=== PATIENT | female | born 2005 | race African-American/Black ===

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

== ENCOUNTER 2024-01-30 12:28 | Inpatient (IN) | payer OTHER ==
[~2024-01-30] VITALS: Ht 154.9 cm; Wt 51.4 kg
[~2024-01-30 12:28] MED LIST changes: +LOPERAMIDE HCL2 MG PO; +OMEPRAZOLE MAGN20 MG PO; +ONDANSETRON HYDR4 M1 PO; +ZAFEMY 150-351 EACH TD
[2024-01-30 12:36] VITALS: BP 131/61
[2024-01-30] MEDS ORDERED: Ondansetron Hydrochloride 4 MG/2 ML VIAL IV ONE (13:00)
[2024-01-30] MEDS ORDERED: SODIUM CHLORIDE 0.9% 1,000 ML IV ONE ×2 (13:00→14:05)
[2024-01-30 13:19] LABS: EOS % 0.1 % (1.0-4.0)
[2024-01-30 13:23] LABS: BASO % 0.3 % (0.0-1.0); LYMPH # 3.1 10*3/uL (1.3-4.4); LYMPH % 22.7 % (27.0-41.0); MEAN CELL VOLUME 85.6 fl (81.0-99.0); MEAN CORPUSCULAR HGB 28.2 pg (27.0-31.0); MEAN CORPUSCULAR HGB CONC 32.9 g/dl (33.0-37.0); MEAN PLATELET VOLUME 11.1 fl (9.6-12.3); MONO # 0.4 10*3/uL (0.1-1.0); MONO % 3.2 % (3.0-9.0); NEUT % 73.3 % (47.0-73.0); PLATELET COUNT AUTOMATED 202 10*3/uL (130-400); RED BLOOD COUNT 4.44 10*6/uL (4.10-5.10); RED CELL DISTRI WIDTH 12.3 % (0-14.5); WHITE BLOOD COUNT 13.6 10*3/uL (4.8-10.8)
[2024-01-30 13:49] LABS: ALKALINE PHOSPHATASE 42 U/L (46-116); BUN 11 mg/dl (9-23); CHLORIDE 102 mmol/L (98-107); LIPASE 20 U/L (12-53); POTASSIUM 3.5 mmol/L (3.4-5.1); SGPT/ALT 76 U/L (5-49); TOTAL PROTEIN 7.8 gm/dL (6.0-8.0)
[2024-01-30 13:53] LABS: BETA-HCG, QUANT < 3.0 mIU/mL (3-10)
[2024-01-30] MEDS ORDERED: Promethazine Hydrochloride 25 MG/ML VIAL IV ONE ×2 (14:15→14:40)
[2024-01-30] MEDS ORDERED: IOHEXOL 300 MG/ML 100 ML VIAL IV ONE (14:40)
[2024-01-30] MEDS ORDERED: FAMOTIDINE 50 ML IV ONE (14:40)
[2024-01-30] MEDS ORDERED: diphenhydrAMINE hydrochloride 50 MG/ML VIAL IV ONE (14:45)
[2024-01-30] MEDS ORDERED: SODIUM CHLORIDE 0.9% 1,000 ML IV SCH (15:10)
[2024-01-30 15:11] VITALS: BP 112/67
[2024-01-30] MEDS ORDERED: Ondansetron Hydrochloride 4 MG/2 ML VIAL IV PRN ×2 (15:15→20:23)
[2024-01-30 16:08] LABS: BILIRUBIN Negative (Negative); BLOOD Negative (Negative); CLARITY Clear (Clear); COLOR Yellow (Yellow); GLUCOSE Trace (Negative); KETONE 4+ (Negative); LEUKO ESTERASE Negative (Negative); NITRITE Negative (Negative); PH 5.5 (4.5-8.0); SPECIFIC GRAVITY >= 1.030 (1.001-1.030); UROBILINOGEN 0.2 E.U./dl (0.0-1.0)
[2024-01-30 16:22] LABS: BACTERIA 3+
[2024-01-30 16:39] VITALS: BP 139/75
[2024-01-30 17:01] LABS: URINE AMPHETAMINES Negative (1000ng/ml); URINE BARBITURATES Negative (200ng/ml); URINE BENZODIAZEPINES Negative (200ng/ml); URINE CANNABINOIDS (THC) Positive (50ng/ml); URINE COCAINE Negative (300ng/ml); URINE METHADONE Negative (300ng/ml); URINE OPIATES Negative (300ng/ml); URINE PHENCYCLIDINE Negative (25ng/ml)
[2024-01-30] MEDS ORDERED: Pantoprazole Sodium 40 MG VIAL IV SCH (18:00)
[2024-01-30 20:00] VITALS: BP 111/61
[2024-01-31] VITALS: BP 118/72
[2024-01-31 06:25] LABS: HEMATOCRIT 32.9 % (37.0-47.0); LYMPH # 2.3 10*3/uL (1.3-4.4); LYMPH % 21.3 % (27.0-41.0); MEAN CORPUSCULAR HGB 27.9 pg (27.0-31.0); MEAN CORPUSCULAR HGB CONC 32.8 g/dl (33.0-37.0); MEAN PLATELET VOLUME 11.4 fl (9.6-12.3); MONO # 0.7 10*3/uL (0.1-1.0); MONO % 6.9 % (3.0-9.0); NEUT # 7.7 10*3/uL (2.3-7.9); NEUT % 71.4 % (47.0-73.0); PLATELET COUNT AUTOMATED 146 10*3/uL (130-400); RED BLOOD COUNT 3.87 10*6/uL (4.10-5.10); RED CELL DISTRI WIDTH 12.5 % (0-14.5); WHITE BLOOD COUNT 10.7 10*3/uL (4.8-10.8)
[2024-01-31 07:04] LABS: ALKALINE PHOSPHATASE 34 U/L (46-116); CHLORIDE 108 mmol/L (98-107); CHOLESTEROL 89 mg/dL (<200); FREE T4 1.15 ng/dl (0.89-1.76); LDL CHOLESTEROL 30 mg/dL (9-159); POTASSIUM 3.9 mmol/L (3.4-5.1); SGPT/ALT 57 U/L (5-49); TOTAL PROTEIN 6.6 gm/dL (6.0-8.0); TRIGLYCERIDES 41 mg/dl (<150)
[2024-01-31 07:06] LABS: BUN < 5 mg/dl (9-23)
[2024-01-31 07:22] LABS: VITAMIN D, 25-HYDROXY 12.9 ng/mL (30-100)
[2024-01-31 08:07] VITALS: BP 110/60
[2024-01-31] MEDS ORDERED: Enoxaparin Sodium 40 MG/0.4 ML SYR SC SCH (10:00)
[2024-01-31 12:00] VITALS: BP 115/67
[2024-01-31] MEDS ORDERED: Promethazine Hydrochloride 25 MG/ML VIAL IV ONE (14:00)
[2024-01-31] MEDS ORDERED: diphenhydrAMINE hydrochloride 50 MG/ML VIAL IV ONE (14:00)
[2024-01-31] MEDS ORDERED: FAMOTIDINE 20 MG in SYRINGE INFUSION 8 ML IV SCH (14:30)
[2024-01-31 15:54] VITALS: BP 99/69
[2024-01-31 20:00] VITALS: BP 130/62
[2024-02-01] VITALS: BP 119/61
[2024-02-01 08:00] VITALS: BP 111/50
[2024-02-01 12:00] VITALS: BP 120/54
[2024-02-01] MEDS ORDERED: diphenhydrAMINE hydrochloride 50 MG/ML VIAL IV ONE (12:00)
[2024-02-01 16:00] VITALS: BP 119/78
[2024-02-01 20:00] VITALS: BP 122/67
[2024-02-02] VITALS: BP 119/78
[2024-02-02 06:49] LABS: BASO % 0.4 % (0.0-1.0); EOS % 0.5 % (1.0-4.0); HEMATOCRIT 32.9 % (37.0-47.0); LYMPH # 2.6 10*3/uL (1.3-4.4); LYMPH % 33.3 % (27.0-41.0); MEAN CORPUSCULAR HGB 27.6 pg (27.0-31.0); MEAN CORPUSCULAR HGB CONC 32.5 g/dl (33.0-37.0); MEAN PLATELET VOLUME 11.8 fl (9.6-12.3); MONO # 0.7 10*3/uL (0.1-1.0); MONO % 8.2 % (3.0-9.0); NEUT # 4.5 10*3/uL (2.3-7.9); NEUT % 57.3 % (47.0-73.0); PLATELET COUNT AUTOMATED 123 10*3/uL (130-400); RED BLOOD COUNT 3.87 10*6/uL (4.10-5.10); RED CELL DISTRI WIDTH 12.6 % (0-14.5); WHITE BLOOD COUNT 7.9 10*3/uL (4.8-10.8)
[2024-02-02 07:08] LABS: CHLORIDE 109 mmol/L (98-107)
[2024-02-02 07:20] LABS: BUN < 5 mg/dl (9-23)
[2024-02-02 08:00] VITALS: BP 115/69
[2024-02-02] MEDS ORDERED: Lactated Ringer's Solution 1,000 ML IV SCH (11:05)
[2024-02-02 11:12] VITALS: BP 115/69
[2024-02-02] MEDS ORDERED: POTASSIUM CHLORIDE 20 MEQ TAB PO SCH (12:00)
[2024-02-02] MEDS ORDERED: Prochlorperazine Edisylate 10 MG/2 ML VIAL IV ONE (13:15)
[2024-02-02 16:00] VITALS: BP 124/66
[2024-02-02 20:00] VITALS: BP 98/55
[2024-02-03] VITALS: BP 109/58
[2024-02-03 07:53] LABS: CHLORIDE 104 mmol/L (98-107); POTASSIUM 3.7 mmol/L (3.4-5.1)
[2024-02-03 07:54] LABS: BUN < 5 mg/dl (9-23)
[2024-02-03 07:58] VITALS: BP 135/79
[2024-02-03] MEDS ORDERED: ONDANSETRON HYDR4 M1 PO (08:31)
[2024-02-03] MEDS ORDERED: VITAMIN D350 MC2 PO (08:33)
== END 2024-02-03 09:49 | disposition home or self-care (01) | DRG 422 ==
LOC: ED 12:28 → EDHOLD 14:20 → 5E 14:20
PROVIDERS: Emergency Medicine; Internal Medicine; Registered Nurse; ADMIT Family Medicine; ATTEND Family Medicine
DX: E86.0 Dehydration (principal); E87.20 Acidosis, unspecified; D72.829 Elevated white blood cell count, unspecified; R74.01 Elevation of levels of liver transaminase levels; F12.90 Cannabis use, unspecified, uncomplicated; E87.6 Hypokalemia; Z88.1 Allergy status to other antibiotic agents; Z88.8 Allergy status to other drugs, medicaments and biological substances